=== PATIENT | male | born 1950 | race Caucasian/White ===

== ENCOUNTER 2018-03-29 10:12 | Emergency (ER) | payer MEDICARE ==
[~2018-03-29] VITALS: Ht 175.3 cm; Wt 88.0 kg
[2018-03-29 10:21] VITALS: BP 143/91; PULSE 99; RESP 16; TEMP 99.3; O2SAT 98
[2018-03-29] MEDS ORDERED: PRIL20TA2 PO (10:32)
[2018-03-29] MEDS ORDERED: HYDR25TA5 PO (10:32)
[2018-03-29] MEDS ORDERED: LISI40TA PO (10:32)
[2018-03-29] MEDS ORDERED: ONDANSETRON ODT 4 MG TAB PO ONE (11:00)
--- NOTE | 2018-03-29 11:02 | PD ---
HPI Chief Complaint: Cold / Flu Symptoms Time Seen by Provider: 10:52 Travel History International Travel<30 days: No Contact w/Intl Traveler<30days: No Traveled to known affect area: No History of Present Illness HPI 67-year-old male presents to the emergency department for evaluation of cold symptoms that started on night, 2 days ago. He states he started with a cough and sore throat. He states that he felt better this morning. He did take Robitussin last night which he found out was 3 years old. Patient states that he went to eat a banana and Gatorade. After eating the banana and Gatorade , he felt shaky and nauseated. He denies any vomiting. He states he has had low-grade fever up to 99.3. Patient denies any chest pain or shortness of breath. No abdominal pain. Patient states he felt like he was going to have diarrhea, but did not. Patient reports history of hypertension and GERD. He is on lisinopril, hydrochlorothiazide, Pepcid. He denies any exacerbating or alleviating factors. He states that the shakiness has resolved. He feels nauseated and thirsty. Moderate severity. PFSH Past Medical History Hx Anticoagulant Therapy: No Cardiovascular Problems: Yes (HTN, CHOL) Diabetes: No Diminished Hearing: No GERD: Yes Hypertension: Yes Tetanus Vaccination: Unknown Past Surgical History Appendectomy: Yes Social History Alcohol Use: Yes (SOC) Tobacco Use: No Substance Use: No Allergies-Medications (Allergen,Severity, Reaction): Coded Allergies: No Known Allergies (Unverified , 03/29/18) Reported Meds & Prescriptions Reported Meds & Active Scripts Active Reported Prilosec (Omeprazole Magnesium) 20 Mg Tab 20 Mg PO DAILY Hydrochlorothiazide 25 Mg Tab 25 Mg PO DAILY Lisinopril 40 Mg Tab 40 Mg PO DAILY Review of Systems Except as stated in HPI: all other systems reviewed are Neg Physical Exam Narrative GENERAL: Well-nourished, well-developed male patient, afebrile. SKIN: Focused skin assessment warm/dry. HEAD: Normocephalic. Atraumatic. ENT: Mucosa pink and moist. No erythema or exudates. No uvular edema. No uvular , palatal, or tonsillar deviation. Airway patent. Nasal turbinates appear normal without nasal blood, purulent drainage or septal hematoma. Bilateral tympanic membranes clear without erythema or perforation. EYES: No scleral icterus. No injection or drainage. NECK: Supple, trachea midline. No JVD or lymphadenopathy. CARDIOVASCULAR: Regular rate and rhythm without murmurs, gallops, or rubs. RESPIRATORY: Breath sounds equal bilaterally. No accessory muscle use. Lung sounds are clear to auscultation. GASTROINTESTINAL: Abdomen soft, non-tender, nondistended. No abdominal pain to palpation. MUSCULOSKELETAL: No cyanosis, or edema. BACK: Nontender without obvious deformity. No CVA tenderness. Data Data Last Documented VS Vital Signs Date Time Temp Pulse Resp B/P (MAP) Pulse Ox O2 Delivery O2 Flow Rate FiO2 03/29/18 10:21 99.3 99 16 143/91 (108) 98 Orders Orders Blood Glucose (03/29/18 10:58) Chest, Pa & Lat (03/29/18 ) Influenzae A/B Antigen (03/29/18 10:58) Ondansetron Odt (Zofran Odt) (03/29/18 11:00) Oral Rehydration (03/29/18 11:26) MDM Medical Decision Making Medical Screen Exam Complete: Yes Emergency Medical Condition: Yes Medical Record Reviewed: Yes Interpretation(s) Last Impressions Chest X-Ray 03/29/18 0000 Signed Impressions: Service Date/Time: Thursday, March 29, 2018 11:05 - CONCLUSION: Normal examination. Willie Rangel MD Differential Diagnosis URI versus influenza versus viral syndrome versus pneumonia Narrative Course 67-year-old male presents to the emergency department for evaluation of cold symptoms since . He does appear well on exam. Chest x-ray and influenza swabs are ordered and pending. Patient is given Zofran 4 mg ODT. Blood glucose will be obtained. Chest x-ray is normal. Influenza is negative. Blood glucose is 124. Patient is tolerating p.o. fluids without difficulty. He will be discharged prescription for Zofran and benzonatate capsules for cough. He is to hold his primary care physician return here for any acute worsening of symptoms. The patient was discharged in stable condition with instructions, including return instructions and follow up instructions. Diagnosis Primary Impression: Viral URI with cough Referrals: Primary Care Physician 2 days Patient Instructions: General Instructions, Upper Respiratory Infection (ED) Additional Instructions: Take Zofran as directed as needed for nausea/vomiting. Take benzonatate capsules as directed as needed for cough. Follow-up with a primary care physician. Return to the emergency department for any acute worsening of symptoms. Med/Other Pt SpecificInfo: Prescription(s) given Scripts Benzonatate (Benzonatate) 200 Mg Cap 200 MG PO TID Y for COUGH, #21 CAP 0 Refills Prov: Megan Brooks 03/29/18 Ondansetron Odt (Zofran Odt) 4 Mg Tab 4 MG SL Q6HR Y for Nausea/Vomiting, #16 TAB 0 Refills Prov: Megan Brooks 03/29/18 Disposition: 01 DISCHARGE HOME Condition: Stable Megan Brooks Mar 29, 2018 11:02
--- NOTE | 2018-03-29 11:25 | RADRPT ---
EXAM DATE/TIME: 03/29/2018 11:05 [facility] COMPARISON: No previous studies available for comparison. INDICATIONS : Cough. MEDICAL HISTORY : None. SURGICAL HISTORY : None. ENCOUNTER: Initial ACUITY: 3 days PAIN SCORE: 0/10 LOCATION: Bilateral chest FINDINGS: PA and lateral views of the chest demonstrate the lungs to be symmetrically aerated without evidence of mass, infiltrate or effusion. The cardiomediastinal contours are unremarkable. Osseous structure s are intact. CONCLUSION: Normal examination. Willie Rangel MD on March 29, 2018 at 11:23 Board Certified Radiologist. This report was verified electronically.
[2018-03-29] MEDS ORDERED: BENZ1CAP51 PO (11:43)
[2018-03-29] MEDS ORDERED: ZOFR4TAB3 SL (11:43)
== END 2018-03-29 11:49 | disposition home or self-care (01) ==
LOC: PHEFT 10:12
DX: J06.9 Acute upper respiratory infection, unspecified (principal); I10 Essential (primary) hypertension; K21.9 Gastro-esophageal reflux disease without esophagitis
CPT/HCPCS: 71046; 87804; 99284